=== PATIENT | male | born 1995 | race Caucasian/White ===

== ENCOUNTER 2021-04-06 20:19 | Emergency (ER) | payer BC ==
[2021-04-06] MEDS ORDERED: Ondansetron 4 MG Tab.DIS PO ONE (21:40)
== END 2021-04-06 22:33 | disposition home or self-care (01) ==
LOC: JD.ED 20:19
DX: R07.89 Other chest pain (principal); I10 Essential (primary) hypertension; Z72.0 Tobacco use
CPT/HCPCS: 36415; 71045; 80053; 83735; 84484; 85025; 93005; 99285; A9270

== ENCOUNTER 2024-11-24 08:28 | Emergency (ER) | payer BC ==
[2024-11-24] MEDS: Iopamidol 612 MG/ML 100 ML Bottle IVPUSH ONE (09:02)
[2024-11-24 09:03] LABS: BASOPHILS ABSOLUTE AUTO 0.1 K/mm3 (0.0-0.2); BASOPHILS PERCENT AUTO 0.3 % (0.0-1.0); EOSINOPHILS ABSOLUTE AUTO 0.2 K/mm3 (0.0-0.4); EOSINOPHILS PERCENT AUTO 1.2 % (0.0-6.0); IMMATURE GRAN ABSOLUTE AUTO 0.08 K/mm3 (0.00-0.05); IMMATURE GRAN PERCENT AUTO 0.5 % (0.0-0.4); LYMPHOCYTES ABSOLUTE AUTO 4.4 K/mm3 (1.0-4.8); LYMPHOCYTES PERCENT AUTO 28.5 % (24.0-44.0); MEAN PLATELET VOLUME 8.7 fl (9.4-12.4); MONOCYTES ABSOLUTE AUTO 1.0 K/mm3 (0.0-0.8); MONOCYTES PERCENT AUTO 6.6 % (0.0-8.0); NEUTROPHILS ABSOLUTE AUTO 9.7 K/mm3 (1.8-7.7); NEUTROPHILS PERCENT AUTO 62.9 % (41.0-71.0); NRBC ABSOLUTE 0.00 (0.00-0.02); NRBC PERCENT 0.0 % (0.0-0.2); PLATELET COUNT,PLT 388 K/mm3 (150-400); RED BLOOD CELL COUNT 6.17 M/mm3 (4.52-5.90); WHITE BLOOD CELL COUNT,WBC 15.51 K/mm3 (3.9-11.3)
[2024-11-24 09:22] LABS: A/G RATIO 1.0 (1-2); ALANINE AMINOTRANSFERASE,ALT 45.0 U/L (16-63); ASPARTATE AMNIOTRANSFERASE,AST 19.0 U/L (15-37); BILIRUBIN TOTAL 1.0 mg/dL (0.2-1.0); BLOOD UREA NITROGEN,BUN 13.0 mg/dL (7-18); CARBON DIOXIDE,CO2 23.0 mEq/L (21-32); CHLORIDE,CL 104.0 mEq/L (98-107); CREATINE KINASE,CK 111.0 U/L (39-308); CREATININE 0.9 mg/dL (0.7-1.3); EST CRCL DRUG DOSING (CG) 126.17 mL/min; ESTIMATED GFR 119.0 mL/min (>60); GLUCOSE RANDOM 161.0 mg/dL (70-99); POTASSIUM,K 4.3 mEq/L (3.5-5.1); PROTEIN TOTAL,TP 7.7 g/dl (6.4-8.2); SODIUM,NA 137.0 mEq/L (136-145)
[2024-11-24] MEDS: Ondansetron 4 MG/2 ML SDV IVPUSH ONE (09:26)
[2024-11-24] MEDS: Ketorolac 60 MG/2 ML SDV IM ONE (09:27)
[2024-11-24] MEDS: Ketorolac 30 MG/ML SDV IVPUSH ONE (09:28)
== END 2024-11-24 11:10 | disposition home or self-care (01) ==
LOC: JD.ED 08:28
DX: K52.9 Noninfective gastroenteritis and colitis, unspecified (principal); E83.42 Hypomagnesemia; E86.9 Volume depletion, unspecified; I10 Essential (primary) hypertension; Z88.8 Allergy status to other drugs, medicaments and biological substances
CPT/HCPCS: 36415; 74177; 80053; 82550; 83690; 83735; 85025; 96361; 96365; 96375; 99284; A9270; J1885; J2405; J3475; J7030; Q9967